=== PATIENT | female | born 1965 | race Caucasian/White ===

== ENCOUNTER 2016-03-21 13:47 | Emergency (ER) | payer BC, OTHER | END 2016-03-21 14:42 | disposition left against medical advice (07) | LOC: ED 13:47 | DX: S61.219A Laceration without foreign body of unspecified finger without damage to nail, initial encounter (principal); W26.0XXA Contact with knife, initial encounter; Y92.9 Unspecified place or not applicable; Z53.21 Procedure and treatment not carried out due to patient leaving prior to being seen by health care provider | CPT/HCPCS: 99281 ==